=== PATIENT | female | born 1980 | race Caucasian/White ===

== ENCOUNTER 2025-04-08 08:42 | Outpatient (CLI) | payer OTHER, SELFPAY ==
--- OUTSIDE RECORDS SUMMARY | 2025-04-08 08:58 | XMS_ITS | Clinical Summary ---
Author Organization [facility] Virtual Care Address [address] [place] [phone] Phone Care Team Providers Care Skin Installer Name Role Phone Gregg Daniels MD Unavailable Ruiz Betancourt MD Primary Care Provider [phone] Allergies No known active allergies Medications cetirizine (ZyrTEC) 10 mg tabletIndicatio ns:Allergic Rhinitis Take 1 tablet (10 mg total) by mouth every morning Active escitalopram (LEXAPRO) 20 mg tabletIndicatio ns:Depression Take 1 tablet (20 mg total) by mouth every morning 3 Active progesterone (PROMETRIUM) 100 mg capsuleIndicati ons:Premenopaus al symptoms Take 1 capsule (100 mg total) by mouth nightly 3 Active HERBAL DRUGS ORAL Take by mouth Prebiotic powder oral every morning for gut health Red Polyphenol and Fiber mix powder takes by mouth every morning for gut health Active COLOSTRUM, BOVINE ORALIndications :Immune support Take 1 Scoop by mouth every morning powder Active MAGNESIUM GLYCINATE ORALIndications :Insomnia Take 240 mg by mouth nightly Active acetylcysteine (NAC ORAL)Indication s:Sleep Take 1,000 mg by mouth nightly Active progesterone (PROMETRIUM) 100 mg capsule Oral 4 Active Active Problems Problem Noted Date Diagnosed Date Hematuria 06/09/2021 Assessment & Plan (06/09/2021 10:30 AM CDT): Acute on chronic. Likely secondary to old or new left kidney stone. Continue [id number]-[id number] anti-inflammatory. Consider stronger pain medicine if pain is not tolerated. Rule out urinary infection through following up urine culture. Prescribed Flomax . Discussed signs and symptoms also kidney stone emergencies. Follow-up emergency room or urologist depending on symptoms. 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 Skin benign neoplasm 06/14/2014 Infectious warts 06/14/2014 Keratosis, senilis 06/14/2014 Encounters Date Type Department Care Team Description 02/25/2025 12:32 PM CDT - 02/25/2025 11:59 PM CDT Hospital Encounter [facility] [address] [place] [id number] Calculus of kidney; Low back pain, non-specific; Mast cell activation, unspecified; Nausea; Other fatigue; Other urticaria; Pelvic and perineal pain; Snoring Discharge Disposition: Discharge to home or self care 02/07/2025 Orders Only [facility] Health Information Management [address] [place] [address] Scanning, Provider from Last 3 Months Surgical History Surgery Date Site/Laterality Comments EXTRACORPOREAL SHOCK WAVE LITHOTRIPSY 11/24/1995 - 11/23 SECTION 07/26/1998 URETEROSCOPY 06/29/2021 Right URETEROSCOPY 03/24/2023 - 04/23/2023 Medical History Medical History Date Comments Nephrolithiasis Last menstrual period (LMP) date last week 06/13/2021 Depression Family History Medical History Relation Name Comments Macular degeneration Paternal Grandmother Anesthesia problems Neg Hx Relation Name Status Comments Paternal Grandmother Social History Tobacco Use Types Packs/Day Years Used Date Smoking Tobacco: Never Passive Smoke Exposure: Never Smokeless Tobacco: Never AUDIT-C Answer Date Recorded Q1: How often do you have a drink containing alcohol? Never 03/21/2023 Q2: How many drinks containi ng alcohol do you have on a typical day when you are drinking? Patient does not drink Q3: How often do you have si x or more drinks on one occasion? Never 03/21/2023 Personal Safety Answer Date Recorded Have you ever been in or are you currently in a harmful physical or emotional relationship or is someone making you feel afraid or unsafe? 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 Gender Identity Female 05/01/2020 8:33 AM CDT Sexual Orientation Not on file Obstetrics History Last Filed Vital Signs Vital Sign Reading Time Taken Comments Blood Pressure 117/80 09/08/2024 8:11 AM CDT Pulse 60 07/14/2024 9:25 AM CDT Temperature 37 C (98.6 F) 09/08/2024 8:11 AM CDT Respiratory Rate 20 07/14/2024 9:25 AM CDT Oxygen Saturation 98% 07/14/2024 9:25 AM CDT Inhaled Oxygen Concentration - - Weight 69.1 kg (152 lb 4.8 oz) 09/08/2024 8:11 A M CDT Height 175.3 cm (5' 9 ) 09/08/2024 8:11 AM CDT Body Mass Index 22.49 09/08/2024 8:11 AM CDT Plan of Treatment Health Maintenance Due Date Last Done Comments Cervical Cancer Screening 1978 Colon Cancer Screening-Colonoscopy 1978 Depression Screening 1978 Hepatitis C Screening 1978 DTaP/Tdap/Td Vaccine (1 - Tdap) 1989 Hepatitis B Screening 1996 Regular Well Visit/Exam 18-64 1996 Covid-19 Vaccine ( season) 2024 12/29/2020, 12/08/2020 Breast Cancer Screening-Mammogram 05/01/2025 05/01/2024, 07/17/2022, 08/11/2019, Additional history exists Influenza Vaccine (Season Ended) 2025 09/24/2022, 08/24/2021 HPV Vaccines Aged Out No longer eligi ble based on patient's age to complete this topic Pneumococcal vaccine <65 Aged Out No longer eligible based on patient's age to complete this topic Medical Devices Explanted Type Area Steam Shovel Engineer Device Identifier Shelf Expiration Date Model / Serial / Lot [employer] [id number] Set Stent 26cm 5fr Universa 2 Pigtail Curve Ureter Hdrph - [id number] Implanted:Qty: 1 on 06/29/2021 by Evelyn Castelan MD at [facility] Explanted:Qty: 1 on 07/12/2021 Stent Right: Ureter [employer] [id number] 04/19/2024 [id number] / / [id number] [employer] [id number] 6fr 26cm 145cm Radiopaque Positioner Filiform Flexible Tip - [id number] Implanted:Qty: 1 on 03/28/2023 by Gregg Daniels MD at [facility] Explanted:Qty: 1 on 04/09/2023 by Gregg Daniels MD Stent Left: Ureter [employer] [id number] 12/17/2025 [id number] / / [id number] [employer] [id number] 6fr 24cm 145cm Radiopaque Positioner Filiform Flexible Tip - [id number] Implanted:Qty: 1 on 03/28/2023 by Gregg Daniels MD at [facility] Explanted:Qty: 1 on 04/09/2023 by Gregg Daniels MD Stent Right: Ureter [employer] [id number] 12/18/2025 [id number] / / [id number] Procedures Procedure Name Priority Date/Time Associated Diagnosis Comments US TRANSVAGINAL Schedule Routine, Read Routine (OP Routine) 02/25/2025 1:52 PM CDT Calculus of kidney Low back pain, non-specific Mast cell activation, unspecified Nausea Other fatigue Other urticaria Pelvic and perineal pain Snoring SCAN - OTHER ORDERS 02/07/2025 SCREENING MAMMOGRAM BILATERAL W HARMAN Schedule Routine, Read Routine (OP Routine) 05/01/2024 1:02 PM CDT Screening mammogram, encounter for from Last 3 Months or Most Recently Relevant to Health Maintenance Results * US Transvaginal (02/25/2025 1:52 PM CDT) Anatomical Region Laterality Modality Pelvis N/A Ultrasound 02/25/2025 2:24 PM CDT Impressions 02/25/2025 4:47 PM CDT Irregular appearance of the endometrium, which is difficult to differentiate from the myometrium. This may be related to perimenopausal hormonal changes and does not have the typical appearance of adenomyosis. However, differential considerations still include adenomyosis or possibly a low-grade endometrial cancer. Recommend either short-term interval follow-up, sonographic hysterosalpingogram, or endometrial sampling. Dictated by: Pepe Uribe MD The radiology attending physician has personally reviewed this study, and had reviewed and/or edited this written report and agrees with it. Electronically signed by: Kevin Valenzuela M.D. Narrative 02/25/2025 4:47 PM CDT EXAMINATION: TRANSVAGINAL PELVIC SONOGRAM HISTORY: 44-year-old female with pelvic pressure. Most recent menstrual period May 2024. One prior . Otherwise, no history of uterine surgeries or procedures. COMPARISON: CT 12/03/2022 FINDINGS: Uterus: The uterus is anteverted and has a length of 6.9 cm, AP dimension of 2.8 cm, and transverse dimension of 3.4 cm. The endometrium is irregular and difficult to differentiate from the remainder of the uterus. However, it appears to measure approximately 6 cm in thickness. There are no uterine fibroids. Right ovary: The right ovary measures 1.7 cm x 2.5 cm x 1.0 cm. Left ovary: The left ovary measures 1.8 cm x 1.3 cm x 1.4 cm. Other: No abnormal masses or fluid collections are visualized in either adnexal region. Procedure Note Kevin Valenzuela MD - 02/25/2025 EXAMINATION: TRANSVAGINAL PELVIC SONOGRAM HISTORY: 44-year-old female with pelvic pressure. Most recent menstrual period May 2024. One prior . Otherwise, no history of uterine surgeries or procedures. COMPARISON: CT 12/03/2022 FINDINGS: Uterus: The uterus is anteverted and has a length of 6.9 cm, AP dimension of 2.8 cm, and transverse dimension of 3.4 cm. The endometrium is irregular and difficult to differentiate from the remainder of the uterus. However, it appears to measure approximately 6 cm in thickness. There are no uterine fibroids. Right ovary: The right ovary measures 1.7 cm x 2.5 cm x 1.0 cm. Left ovary: The left ovary measures 1.8 cm x 1.3 cm x 1.4 cm. Other: No abnormal masses or fluid collections are visualized in either adnexal region. IMPRESSION: Irregular appearance of the endometrium, which is difficult to differentiate from the myometrium. This may be related to perimenopausal hormonal changes and does not have the typical appearance of adenomyosis. However, differential considerations still include adenomyosis or possibly a low-grade endometrial cancer. Recommend either short-term interval follow-up, sonographic hysterosalpingogram, or endometrial sampling. Dictated by: Pepe Uribe MD The radiology attending physician has personally reviewed this study, and had reviewed and/or edited this written report and agrees with it. Electronically signed by: Kevin Valenzuela M.D. us Notinfile Unknown IMG US PROCEDURES Final Result * SCAN - OTHER ORDERS (02/07/2025) us Provider Scanning Edited Result - Final * Screening Mammogram Bilateral W Harman (05/01/2024 1:02 PM CDT) Anatomical Region Laterality Modality Breast Bilateral Mammography Narrative 05/10/2024 10:09 AM CDT Mammogram Technique: Bilateral Digital Breast Tomosynthesis, Bilateral C-view 2D Screening mammogram. Views obtained: bilateral craniocaudal and bilateral mediolateral oblique. Computer Aided Detection was performed. Mammogram Findings: The present examination has been compared to prior imaging studies performed at [facility] on 06/11/2018 and 08/11/2019, and at [facility] on 07/17/2022. The breasts are extremely dense, which lowers the sensitivity of mammography. There is no suspicious abnormality in either breast. Impression: There is no mammographic evidence of malignancy. Annual screening mammography is recommended. Consider breast MRI for supplemental screening given the patient's extremely dense breast tissue. OVERALL FINAL ASSESSMENT: BI-RADS CATEGORY 1: Negative. Procedure Note Luz Elena Almaraz MD - 05/10/2024 Mammogram Technique: Bilateral Digital Breast Tomosynthesis, Bilateral C-view 2D Screening mammogram. Views obtained: bilateral craniocaudal and bilateral mediolateral oblique. Computer Aided Detection was performed. Mammogram Findings: The present examination has been compared to prior imaging studies performed at [facility] on 06/11/2018 and 08/11/2019, and at [facility] on 07/17/2022. The breasts are extremely dense, which lowers the sensitivity of mammography. There is no suspicious abnormality in either breast. Impression: There is no mammographic evidence of malignancy. Annual screening mammography is recommended. Consider breast MRI for supplemental screening given the patient's extremely dense breasttissue. OVERALL FINAL ASSESSMENT: BI-RADS CATEGORY 1: Negative. us Self Screening Mammogram IMG MAMMO PROCEDURES Fi nal Result from Last 3 Months or Most Recently Relevant to Health Maintenance Insurance [facility] [employer] CHOICE PLUS [facility] [id number] [place] [id number] [employer] Address[address] [place] [address] Care Teams Skin Installer Relationship Specialty Start Date End Date Ruiz Betancourt MD [address] [place] [address] PCP - General Family Medicine 07/14/24 Gregg Daniels MD [address] [facility] [address] [place] [address] Consulting Physician Urology 03/11/23
--- OUTSIDE RECORDS SUMMARY | 2025-04-08 08:58 | XMS_ITS | Clinical Summary ---
Author Organization [facility] Address [address] [place] [address] Care Team Providers Care Engineering Agent Name Role Phone Unavailable Primary Care Provider Unavailabl e Allergies No known active allergies Encounters Date Type Department Care Team Description 03/08/2025 External Device Data [facility] ABSTRACTION Provider, Abstract 02/09/2025 External Device Data [facility]STRACTION Provider, Abstract 02/01/2025 External Device Data [facility]STRACTION Provider, Abstract 02/01/2025 External Device Data [facility]STRACTION Provider, Abstract 01/29/2025 External Device Data [facility] ABSTRACTION Provider, Abstract 01/28/2025 External Device Data [facility]STRACTION Provider, Abstract 01/25/2025 External Device Data [facility]STRACTION Provider, Abstract 01/11/2025 External Device Data [facility] ABSTRACTION Provider, Abstract from Last 3 Months Immunizations Immunization Administration Dates Next Due INFLUENZA VACCINE TRIVALENT SPLIT VIRUS, (6 MOS UP), 0.5ML (PF), IM 08/25/2024 Social History Tobacco Use Types Packs/Day Years Used Date Smoking Tobacco: Never Assessed Comments Unknown Sex and Gender Information Value Date Recorded Sex Assigned at Not on file Legal Sex Female 6:36 PM CDT Gender Identity Not on file Sexual Orientation Not on file Plan of Treatment Health Maintenance Due Date Last Done Comments DTAP/TDAP/TD VACCINES (1 - Tdap) 1997 HEPATITIS B VACCINES (1 of 3 - 19+ 3-dose series) 1997 HPV/Cotest (21-29) 1999 CERVICAL CANCER SCREENING 2008 HPV/Cotest (30-65) 2008 PAP SMEAR 2008 BREAST CANCER SCREENING 2018 COLORECTAL SCREENING 2023 Colorectal Cancer Screening 2023 FIT-DNA Q 3 years 2023 FIT/FOBT Q 1 year 2023 Flex Sig/CT Colonography Q 5 years 2023 INFLUENZA VACCINE Completed 08/25/2024 HPV VACCINES Aged Out No longer eligi ble based on patient's age to complete this topic Insurance RX [employer] Member Subscriber Plan / Payer (Ef fective 2024-Present) Name:Johanna Woods Relation to Subscriber:Self Name:Johanna Woods Subscriber ID:Not on file Payer ID:Not on file Group ID:[id number] Type:RX Commercial Address: [address] [place]
--- OUTSIDE RECORDS SUMMARY | 2025-04-08 08:58 | XMS_ITS | Patient Health Record ---
Author Organization 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 Name Role Phone Ruiz Betancourt MD Primary Care Provider Aileen Ramirez Unavailable [phone] Migration, Provider Unavailable Unavailable Allergies No Known Allergies Reason For Referral No Information Medications Medication SIG (Take, Route, Frequency, Duration) Notes Start Date End Date Status Escitalopram Oxalate 20 MG 1 tablet Once a day for 90 days Active Progesterone Micronized 100 MG Oral 04/12/2024 Active Immunizations Vaccine Route Administration Date Status Comme nts Influenza virus vaccine, quadrivalent (IIV4), split virus, 0.25 mL dosage Unknown 08/24/2021 Administered Influenza, unspecified formulation Unknown 09/24/2022 A dministered Pfizer Biontech Covid-19 Vac cine 2nd dose Unknown 12/08/2020 Administered Pfizer Biontech Covid-19 Vac cine 2nd dose Unknown 12/29/2020 Administered Social History Tobacco Use: Social History Observation Description Date Details (start date - stop date) Never Smoker NA - NA Sex Assigned At : Social History Observation Description Sex Assigned At Female Household Question Answer Notes Marital status: Number of adults in household: 2 Number of children in household: 1 son and step son Tobacco Control (Standard) Question Answer Notes Tobacco use: Nonsmoker AUDIT-C (Standard) Question Answer Notes Did you have a drink containing alcohol in the p ast year? No Points 0 Interpretation Negative Problems Problem Type SNOMED Code ICD Code Onset Dates Problem Status W/U Status Risk Notes Problem Major depressive disorder, recurrent, mild (F33.0) 4 Active confirmed Problem Generalized anxiety disorder (04983031) Generalized anxiety disorder (F41.1) 4 Active confirmed Problem Insomnia disorder 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 disorder (26726778) Insomnia due to other mental disorder (F51.05) 4 Active confirmed Problem Panic disorder (555356150) Panic disorder [episodic paroxysmal anxiety] without agoraphobia (F41.0) 4 Active confirmed Vital Signs Heart Rate 69 /min 01/17/2025 Respiratory Rate 16 /min 01/17/2025 Height-cm 175.26 cm 01/17/2025 Blood pressure diastolic 65 mm Hg 01/17/2025 Weight-kg 70.4 kg 01/17/2025 Height 69.00 in 01/17/2025 Blood pressure systolic 98 mm Hg 01/17/2025 Weight 155.2 lbs 01/17/2025 BMI 22.92 kg/m2 01/17/2025 Encounters Encounter Location Date Provider Diagnosis [facility] [place] [address] [facility] [address] [address] 04/12/2024 Aileen Cotton Insomnia due to other mental disorder F51.05 ; Generalized anxiety disorder F41.1 ; Major depressive disorder, recurrent, mild F33.0 and Panic disorder [episodic paroxysmal anxiety] without agoraphobia F41.0 [facility] [place] [id number] [address] 07/01/2024 Aileen Cotton Major depressive disorder, recurrent, mild F33.0 ; Generalized anxiety disorder F41.1 ; Insomnia due to other mental disorder F51.05 and Panic disorder [episodic paroxysmal anxiety] without agoraphobia F41.0 [facility] [place] [address] [address] 10/07/2024 Aileen Cotton Major depressive disorder, recurrent, mild F33.0 ; Generalized anxiety disorder F41.1 ; Insomnia due to other mental disorder F51.05 and Panic disorder [episodic paroxysmal anxiety] without agoraphobia F41.0 [facility] [place] [address] [address] 01/17/2025 Aileen Cotton Major depressive disorder, recurrent, mild F33.0 ; Generalized anxiety disorder F41.1 ; Insomnia due to other mental disorder F51.05 and Panic disorder [episodic paroxysmal anxiety] without agoraphobia F41.0 [facility] [address] [facility] [address] [place] [address] 04/10/2024 [facility] [address] [facility] [address] [place] [address] 04/11/2024 Provider Migration [facility] [address] [facility] [address] [place] [address] 04/28/2024 [facility] [address] [facility] [address] [place] [address] 04/28/2024 [facility] [address] [facility] [address] [place] [address] 05/06/2024 Aileen Cotton Generalized anxiety disorder F41.1 Assessments Encounter Date Diagnosis (ICD Code) Assessment Notes Treatment Notes Treatment Clinical Notes Section Notes 05/06/2024 Generalized anxiety disorder (ICD-10 - F41.1) 07/01/2024 Major depressive disorder, recurrent, mild (ICD-10 - F33.0) 1. Mild recurrent major depression - Lexapro 20 mg daily continue therapy educated on light box and proper use - not using for SAD depression educated on all medications, benefits, side effects and risk, and educated on depression, anxiety, and , mood d/o and educated on compliance of medications, appointment's, continue therapy discussion with patient about course of treatment and patient instructions. 2. Generalized anxiety disorder -Lexapro educated on rx Medication Management and Follow-Up- Plan:- Schedule follow-up appointments every 1-3 months to monitor the patient's response to the medication regimen.- Reinforce the importance of avoiding recreational drug use due to potential neurotoxicity and interactions with prescribed medications. 3. 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 Panic disorder -Lexapro 07/01/2024 Generalized anxiety disorder (ICD-10 - F41.1) Learning About Generalized Anxiety Disorder material was published, Generalized Anxiety Disorder: Care Instructions material was published, Learning About Anxiety Disorders material was published, Learning About Transcranial Magnetic Stimulation (TMS) material was published 1. Mild recurrent major depression - Lexapro 20 mg daily continue therapy educated on light box and proper use - not using for SAD depression educated on all medications, benefits, side effects and risk, and educated on depression, anxiety, and , mood d/o and educated on compliance of medications, appointment's, continue therapy discussion with patient about course of treatment and patient instructions. 2. Generalized anxiety disorder -Lexapro educated on rx Medication Management and Follow-Up- Plan:- Schedule follow-up appointments every 1-3 months to monitor the patient's response to the medication regimen.- Reinforce the importance of avoiding recreational drug use due to potential neurotoxicity and interactions with prescribed medications. 3. 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 Panic disorder -Lexapro 10/07/2024 Major depressive disorder, recurrent, mild (ICD-10 - F33.0) 1. major depression - Lexapro 20 mg daily continue therapy educated on light box and proper use - not using for SAD depression educated on all medications, benefits, side effects and risk, and educated on depression, anxiety, and , mood d/o and educated on compliance of medications, appointment's, continue therapy discussion with patient about course of treatment and patient instructions. SSRI/SNRI side effects discussed including but not limited to, gastric upset, nausea, vomiting, diarrhea and/or constipation, weight changes, sexual side effects including loss of libido, increased suicidal thoughts/behavio rs in children and young adults, and serotonin syndrome. 2. Generalized anxiety disorder -Lexapro educated on rx Medication Management and Follow-Up- Plan:- Schedule follow-up appointments every 1-3 months to monitor the patient's response to the medication regimen.- Reinforce the importance of avoiding recreational drug use due to potential neurotoxicity and interactions with prescribed medications. 3. 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 Panic disorder -Lexapro 01/17/2025 Major depressive disorder, recurrent, mild (ICD-10 - F33.0) 1. major depression - Lexapro 20 mg daily continue therapy educated on light box and proper use - using for SAD depression- reported sneed snot help her- makes her cry educated on all medications, benefits, side effects and risk, and educated on depression, anxiety, and , mood d/o and educated on compliance of medications, appointment's, continue therapy discussion with patient about course of treatment and patient instructions. SSRI/SNRI side effects discussed including but not limited to, gastric upset, nausea, vomiting, diarrhea and/or constipation, weight changes, sexual side effects including loss of libido, increased suicidal thoughts/behavio rs in children and young adults, and serotonin syndrome. 2. Generalized anxiety disorder -Lexapro educated on rx Medication Management and Follow-Up- Plan:- Schedule follow-up appointments every 1-3 months to monitor the patient's response to the medication regimen.- Reinforce the importance of avoiding recreational drug use due to potential neurotoxicity and interactions with prescribed medications. 3. 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 Panic disorder -Lexapro 04/12/2024 Major depressive disorder, recurrent, mild (ICD-10 - F33.0) 04/12/2024 Generalized anxiety disorder (ICD-10 - F41.1) 04/12/2024 Insomnia due to other mental disorder (ICD-10 - F51.05) 04/12/2024 Panic disorder [episodic paroxysmal anxiety] without agoraphobia (ICD-10 - F41.0) 01/17/2025 Generalized anxiety disorder (ICD-10 - F41.1) Learning About Generalized Anxiety Disorder material was published, Generalized Anxiety Disorder: Care Instructions material was published, Learning About Anxiety Disorders material was published, Learning About Transcranial Magnetic Stimulation (TMS) material was published 1. major depression - Lexapro 20 mg daily continue therapy educated on light box and proper use - using for SAD depression- reported sneed snot help her- makes her cry educated on all medications, benefits, side effects and risk, and educated on depression, anxiety, and , mood d/o and educated on compliance of medications, appointment's, continue therapy discussion with patient about course of treatment and patient instructions. SSRI/SNRI side effects discussed including but not limited to, gastric upset, nausea, vomiting, diarrhea and/or constipation, weight changes, sexual side effects including loss of libido, increased suicidal thoughts/behavio rs in children and young adults, and serotonin syndrome. 2. Generalized anxiety disorder -Lexapro educated on rx Medication Management and Follow-Up- Plan:- Schedule follow-up appointments every 1-3 months to monitor the patient's response to the medication regimen.- Reinforce the importance of avoiding recreational drug use due to potential neurotoxicity and interactions with prescribed medications. 3. 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 Panic disorder -Lexapro 10/07/2024 Generalized anxiety disorder (ICD-10 - F41.1) Learning About Generalized Anxiety Disorder material was published, Generalized Anxiety Disorder: Care Instructions material was published, Learning About Anxiety Disorders material was published, Learning About Transcranial Magnetic Stimulation (TMS) material was published 1. major depression - Lexapro 20 mg daily continue therapy educated on light box and proper use - not using for SAD depression educated on all medications, benefits, side effects and risk, and educated on depression, anxiety, and , mood d/o and educated on compliance of medications, appointment's, continue therapy discussion with patient about course of treatment and patient instructions. SSRI/SNRI side effects discussed including but not limited to, gastric upset, nausea, vomiting, diarrhea and/or constipation, weight changes, sexual side effects including loss of libido, increased suicidal thoughts/behavio rs in children and young adults, and serotonin syndrome. 2. Generalized anxiety disorder -Lexapro educated on rx Medication Management and Follow-Up- Plan:- Schedule follow-up appointments every 1-3 months to monitor the patient's response to the medication regimen.- Reinforce the importance of avoiding recreational drug use due to potential neurotoxicity and interactions with prescribed medications. 3. 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 Panic disorder -Lexapro 07/01/2024 Insomnia due to other mental disorder (ICD-10 - F51.05) 1. Mild recurrent major depression - Lexapro 20 mg daily continue therapy educated on light box and proper use - not using for SAD depression educated on all medications, benefits, side effects and risk, and educated on depression, anxiety, and , mood d/o and educated on compliance of medications, appointment's, continue therapy discussion with patient about course of treatment and patient instructions. 2. Generalized anxiety disorder -Lexapro educated on rx Medication Management and Follow-Up- Plan:- Schedule follow-up appointments every 1-3 months to monitor the patient's response to the medication regimen.- Reinforce the importance of avoiding recreational drug use due to potential neurotoxicity and interactions with prescribed medications. 3. 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 Panic disorder -Lexapro 07/01/2024 Panic disorder [episodic paroxysmal anxiety] without agoraphobia (ICD-10 - F41.0) Panic Attacks: Care Instructions material was published 1. Mild recurrent major depression - Lexapro 20 mg daily continue therapy educated on light box and proper use - not using for SAD depression educated on all medications, benefits, side effects and risk, and educated on depression, anxiety, and , mood d/o and educated on compliance of medications, appointment's, continue therapy discussion with patient about course of treatment and patient instructions. 2. Generalized anxiety disorder -Lexapro educated on rx Medication Management and Follow-Up- Plan:- Schedule follow-up appointments every 1-3 months to monitor the patient's response to the medication regimen.- Reinforce the importance of avoiding recreational drug use due to potential neurotoxicity and interactions with prescribed medications. 3. 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 Panic disorder -Lexapro 10/07/2024 Insomnia due to other mental disorder (ICD-10 - F51.05) 1. major depression - Lexapro 20 mg daily continue therapy educated on light box and proper use - not using for SAD depression educated on all medications, benefits, side effects and risk, and educated on depression, anxiety, and , mood d/o and educated on compliance of medications, appointment's, continue therapy discussion with patient about course of treatment and patient instructions. SSRI/SNRI side effects discussed including but not limited to, gastric upset, nausea, vomiting, diarrhea and/or constipation, weight changes, sexual side effects including loss of libido, increased suicidal thoughts/behavio rs in children and young adults, and serotonin syndrome. 2. Generalized anxiety disorder -Lexapro educated on rx Medication Management and Follow-Up- Plan:- Schedule follow-up appointments every 1-3 months to monitor the patient's response to the medication regimen.- Reinforce the importance of avoiding recreational drug use due to potential neurotoxicity and interactions with prescribed medications. 3. 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 Panic disorder -Lexapro 01/17/2025 Insomnia due to other mental disorder (ICD-10 - F51.05) 1. major depression - Lexapro 20 mg daily continue therapy educated on light box and proper use - using for SAD depression- reported sneed snot help her- makes her cry educated on all medications, benefits, side effects and risk, and educated on depression, anxiety, and , mood d/o and educated on compliance of medications, appointment's, continue therapy discussion with patient about course of treatment and patient instructions. SSRI/SNRI side effects discussed including but not limited to, gastric upset, nausea, vomiting, diarrhea and/or constipation, weight changes, sexual side effects including loss of libido, increased suicidal thoughts/behavio rs in children and young adults, and serotonin syndrome. 2. Generalized anxiety disorder -Lexapro educated on rx Medication Management and Follow-Up- Plan:- Schedule follow-up appointments every 1-3 months to monitor the patient's response to the medication regimen.- Reinforce the importance of avoiding recreational drug use due to potential neurotoxicity and interactions with prescribed medications. 3. 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 Panic disorder -Lexapro 01/17/2025 Panic disorder [episodic paroxysmal anxiety] without agoraphobia (ICD-10 - F41.0) Panic Attacks: Care Instructions material was published 1. major depression - Lexapro 20 mg daily continue therapy educated on light box and proper use - using for SAD depression- reported sneed snot help her- makes her cry educated on all medications, benefits, side effects and risk, and educated on depression, anxiety, and , mood d/o and educated on compliance of medications, appointment's, continue therapy discussion with patient about course of treatment and patient instructions. SSRI/SNRI side effects discussed including but not limited to, gastric upset, nausea, vomiting, diarrhea and/or constipation, weight changes, sexual side effects including loss of libido, increased suicidal thoughts/behavio rs in children and young adults, and serotonin syndrome. 2. Generalized anxiety disorder -Lexapro educated on rx Medication Management and Follow-Up- Plan:- Schedule follow-up appointments every 1-3 months to monitor the patient's response to the medication regimen.- Reinforce the importance of avoiding recreational drug use due to potential neurotoxicity and interactions with prescribed medications. 3. 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 Panic disorder -Lexapro 10/07/2024 Panic disorder [episodic paroxysmal anxiety] without agoraphobia (ICD-10 - F41.0) Panic Attacks: Care Instructions material was published 1. major depression - Lexapro 20 mg daily continue therapy educated on light box and proper use - not using for SAD depression educated on all medications, benefits, side effects and risk, and educated on depression, anxiety, and , mood d/o and educated on compliance of medications, appointment's, continue therapy discussion with patient about course of treatment and patient instructions. SSRI/SNRI side effects discussed including but not limited to, gastric upset, nausea, vomiting, diarrhea and/or constipation, weight changes, sexual side effects including loss of libido, increased suicidal thoughts/behavio rs in children and young adults, and serotonin syndrome. 2. Generalized anxiety disorder -Lexapro educated on rx Medication Management and Follow-Up- Plan:- Schedule follow-up appointments every 1-3 months to monitor the patient's response to the medication regimen.- Reinforce the importance of avoiding recreational drug use due to potential neurotoxicity and interactions with prescribed medications. 3. 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 Panic disorder -Lexapro 07/01/2024 Other Escitalopram Oral Tablet (ESCITALOPRAM - ORAL) material was published 1. Mild recurrent major depression - Lexapro 20 mg daily continue therapy educated on light box and proper use - not using for SAD depression educated on all medications, benefits, side effects and risk, and educated on depression, anxiety, and , mood d/o and educated on compliance of medications, appointment's, continue therapy discussion with patient about course of treatment and patient instructions. 2. Generalized anxiety disorder -Lexapro educated on rx Medication Management and Follow-Up- Plan:- Schedule follow-up appointments every 1-3 months to monitor the patient's response to the medication regimen.- Reinforce the importance of avoiding recreational drug use due to potential neurotoxicity and interactions with prescribed medications. 3. 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 Panic disorder -Lexapro Plan Of Treatment Next Appt Details Provider Name:Aileen Cotton , 04/08/2025 09:45:00 AM, [address], [facility] [address], [place], [address], Insurance Providers Payer Name Payer Address Payer Phone Subscriber Number Group Number Insured Name Patient Relationship to Insured Coverage Start Date Coverage End Date Cigna [address] [facility] [place] [address] [id number] CAMILA SANTIAGO Self - patient is the insured Medical (General) History Medical History History ICD Code Problems: Generalized anxiety disorder Insomnia disorder related to another men shin disorder Mild recurrent major depression Panic disorder Serum iron below reference range Severe recurrent major depression , Surgical History Surgery Date(Month/Year) Lithotripsy ([id number]) 05/11/1996 section ([id number]) 05/21/1998 Lithotripsy ([id number]) 07/14/2021 Other 07/26/1998
--- OUTSIDE RECORDS SUMMARY | 2025-04-08 08:58 | XMS_ITS | Referral Summary ---
Author Organization [facility] Virtual Care Address [address] [place] [address] Phone Care Team Providers Care Clinical Geneticist Name Role Phone Gregg Daniels MD Unavailable Ruiz Betancourt MD Primary Care Provider [phone] Encounters Date Type Department Care Team Description 02/25/2025 12:32 PM CDT - 02/25/2025 11:59 PM CDT Hospital Encounter [facility] [address] [place] [address] Calculus of kidney; Low back pain, non-specific; Mast cell activation, unspecified; Nausea; Other fatigue; Other urticaria; Pelvic and perineal pain; Snoring Discharge Disposition: Discharge to home or self care 02/07/2025 Orders Only [facility] Health Information Management [address] [place] [address] Scanning, Provider from Last 3 Months Allergies No known active allergies Medications cetirizine [...] old or new left kidney stone. Continue sdvi-bmo-vmfvnzj anti-inflammatory. Consider stronger pain medicine if pain is not tolerated. Rule out urinary infection through following up urine culture. Prescribed Flomax . Discussed signs and symptoms also kidney stone emergencies. Follow-up emergency room or urologist depending on symptoms. Nephrolithiasis 06/07/2021 Overview (06/07/2021): Added automatically from request for surgery [id number] Routine eye exam 11/25/2018 Presbyopia of both eyes 11/25/2018 Surgical follow-up care 06/27/2014 Neoplasm of connective and soft tissue 4 Skin benign neoplasm 06/14/2014 Infectious warts 06/14/2014 Keratosis, senilis 06/14/2014 Social History Tobacco Use Types Packs/Day Years Used Date Smoking Tobacco: Never Passive Smoke Exposure: Never Smokeless Tobacco: Never AUDIT-C Answer Date Recorded Q1: How often do you have a drink containing alcohol? Never 03/21/2023 Q2: How many drinks containi ng alcohol do you have on a typical day when you are drinking? 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 Gender Identity Female 05/01/2020 8:33 AM CDT Sexual Orientation Not on file Last Filed Vital Signs Vital Sign Reading [...] 09/08/2024 8:11 AM CDT Plan of Treatment Not on file Medical Devices Explanted Type Area Plumber Helper Device Identifier Shelf Expiration Date Model / Serial / Lot [employer] [id number] Set Stent 26cm 5fr Universa 2 Pigtail Curve Ureter Hdrph - [id number] Implanted:Qty: 1 on 06/29/2021 by Evelyn Castelan MD at [facility] Explanted:Qty: 1 on 07/12/2021 Stent Right: Ureter [employer] [id number] 04/19/2024 [id number] / / [id number] [employer] [id number] 6fr 26cm 145cm Radiopaque Positioner Filiform Flexible Tip - [id number] Implanted:Qty: 1 on 03/28/2023 by Gregg Daniels MD at [facility] Explanted:Qty: 1 on 04/09/2023 by Gregg Daniels MD Stent Left: Ureter [employer] [id number] 12/17/2025 [id number] / / [id number] [employer] [id number] 6fr 24cm 145cm Radiopaque Positioner Filiform Flexible Tip - [id number] Implanted:Qty: 1 on 03/28/2023 by Gregg Daniels MD at [facility] Explanted:Qty: 1 on 04/09/2023 by Gregg Daniels MD Stent Right: Ureter [employer] [id number] 12/18/2025 [id number] / / [id number] Procedures Procedure Name Priority Date/Time Associated Diagnosis Comments US TRANSVAGINAL Schedule Routine, Read Routine (OP Routine) 02/25/2025 1:52 PM CDT Calculus of kidney Low back pain, non-specific Mast cell activation, unspecified Nausea Other fatigue Other urticaria Pelvic and perineal pain Snoring SCAN - OTHER ORDERS 02/07/2025 SCREENING MAMMOGRAM BILATERAL W STEPHEN Schedule Routine, Read Routine (OP Routine) 05/01/2024 [...] - Final * Screening Mammogram Bilateral W Stephen (05/01/2024 1:02 PM CDT) Anatomical Region Laterality Modality Breast Bilateral Mammography Narrative 05/10/2024 10:09 AM CDT Mammogram Technique: Bilateral Digital Breast Tomosynthesis, Bilateral C-view 2D Screening mammogram. Views obtained: bilateral craniocaudal and bilateral mediolateral oblique. Computer Aided Detection was performed. Mammogram Findings: The present examination has been compared to prior imaging studies performed at [facility] on 06/11/2018 and 08/11/2019, and at [facility] on 07/17/2022. The breasts are extremely dense, [...] compared to prior imaging studies performed at [facility] on 06/11/2018 and 08/11/2019, and at [facility] on 07/17/2022. The breasts are extremely dense, [...] Most Recently Relevant to Health Maintenance Insurance [facility] STUDENT RESOURCES CHOICE PLUS [facility] [address] [place] [employer] [facility] [employer] [facility] [employer]EE [employer] Address: [address] RAJWINDER Romero [address] Care Teams Clinical Geneticist Relationship Specialty Start Date End Date Ruiz Betancourt MD [address] [place] [address] PCP - General Family Medicine 07/14/24 Gregg Daniels MD [address] [facility] [address] [place] [address] Consulting Physician Urology 03/11/23
[2025-04-08 09:04] LABS: Hematocrit 37.8 % (37.0-47.0); Hemoglobin 12.4 g/dL (12.0-15.0); Mean Corpuscular HGB Conc 32.8 g/dl (32-36); Mean Corpuscular Hemoglobin 31.1 pg (26-34); Mean Corpuscular Volume 94.7 fl (80-100); Platelet Count Result 213 k/mm3 (150-375); Red Blood Count 3.99 M/mm3 (4.2-5.4); Red Cell Distribution Width 11.7 % (11.5-14.5); White Blood Count 3.9 K/mm3 (4.5-10.0)
== END 2025-04-08 08:43 | disposition home or self-care (01) ==
LOC: ANHSURGERY 08:47
PROVIDERS: PCP Family Medicine; Visit Provider Obstetrics & Gynecology
DX: Z01.812 Encounter for preprocedural laboratory examination (principal); R93.89 Abnormal findings on diagnostic imaging of other specified body structures
CPT/HCPCS: 36415; 85027

== ENCOUNTER 2025-04-14 01:01 | Day surgery (SDC) | payer OTHER, SELFPAY ==
[2025-04-07 10:01] VITALS: BMI 22.1
--- NOTE | 2025-04-07 10:09 | PC.NURSE ---
Report to the Outpatient Waiting Room, entrance under the green pavilion located off [facility], at time _0800_ on date _[id number]_. Planned Procedure Time: _1000_.? Time changes happen often and if your time is changed the preop area will call you the afternoon before. - You and your visitor will be asked to self-screen and do not enter if you have any COVID symptoms. Please call surgeon if you need to reschedule. - A mask is optional within the hospital at this time. Patients may have clear liquids (water, carbonated beverages, clear teas, apple juice) until 3 hours prior to surgery with a maximum of 20 ounces. - No food from midnight until time of surgery and no smoking, or chewing tobacco (or any form of nicotine). No chewing gum, candy or mints. Take only the following medications with a SIP of water on the morning of surgery: ___Escitalopram____ DO NOT STOP ANY OF YOUR OTHER PRESCRIPTION MEDICATIONS PRIOR TO SURGERY EXCEPT THE FOLLOWING Hold all vitamins and supplements for 3 days per anesthesiologist. Medications to discontinue per physician Date to take last adqm___[id number]___ Please no make-up, nail pakistani, hairspray, perfume, deodorant, or body powder the day of surgery.? No jewelry (including any body piercings) or valuables the day of surgery, leave them at home.? Please take a shower or bath the night before, or the morning of, surgery with an antibacterial soap.? Wear comfortable, loose fitting clothing.? - Jewelry must be removed prior to entering the operating room.? Rings and piercings that are not removed may be cut off. - The hospital will not accept responsibility for valuables.? - Please leave all valuables, including medications, at home the day of surgery. If you are going home after surgery, a licensed regional company flatbed truck driver must drive you home.? - NO public transportation without another adult if you receive anesthesia. - We recommend that an adult stay with you for 24 hours following discharge. - We also recommend that you do not drive, make important decision, drink alcoholic beverages, or take any drugs that were not prescribed by your health care provider for at least 24 hours after your discharge time. Follow any additional instructions given to you from your surgeon. Telephone instructions given to __Abbey___and asked if any additional questions and then verbalized understanding. Patient advised to call surgeon office or pre surgery nurse liaison [phone] if any additional questions.
--- OUTSIDE RECORDS SUMMARY | 2025-04-14 01:05 | XMS_ITS | Patient Health Record ---
Author Organization [facility] [employer] Address [address] [place] [address] Care Team Providers Care Salesperson Terrazzo Tiles Name Role Phone Ruiz Betancourt MD Primary Care Provider Aileen Ramirez Unavailable [phone] Allergies No Known Allergies Reason For Referral No Information Medications Medication SIG (Take, Route, Frequency, Duration) Notes Start Date End Date Status Progesterone Micronized 100 MG Oral 04/12/2024 Active Escitalopram Oxalate 20 MG 1 tablet Once a day for 90 days Active Immunizations Vaccine Route Administration Date Status [...] Problem Status W/U Status Risk Notes Problem Mild recurrent major depression (52242161) Major depressive disorder, recurrent, mild (F33.0) 04/12/20 24 Active confirmed Problem Generalized anxiety disorder (92203725) Generalized anxiety disorder (F41.1) 04/12/20 Active confirmed Problem Insomnia disorder 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 disorder (37120934) Insomnia due to other mental disorder (F51.05) 04/12/20 Active confirmed Problem Screening for cardiovascular system disease (529510711) Encounter for screening for cardiovascular disorders (Z13.6) Active confirmed Problem Panic disorder (227918001) Panic disorder [episodic paroxysmal anxiety] without agoraphobia (F41.0) 04/12/20 Active confirmed Vital Signs Heart Rate 67 /min 04/08/2025 Respiratory Rate 16 /min 01/17/2025 Height-cm 175.26 cm 04/08/2025 Blood pressure diastolic 66 mm Hg 04/08/2025 Weight-kg 69.67 kg 04/08/2025 Height 69.00 in 04/08/2025 Blood pressure systolic 99 mm Hg 04/08/2025 Weight 153.6 lbs 04/08/2025 BMI 22.68 kg/m2 04/08/2025 Encounters Encounter Location Date Provider Diagnosis [facility] [place] [id number] [address] 07/01/2024 Aileen Cotton Major depressive disorder, recurrent, mild F33.0 ; Generalized anxiety disorder F41.1 ; Insomnia due to other mental disorder F51.05 and Panic disorder [episodic paroxysmal anxiety] without agoraphobia F41.0 [facility] [employer] [place] [address] [address] 10/07/2024 Aileen Cotton Major depressive disorder, recurrent, mild F33.0 ; Generalized anxiety disorder F41.1 ; Insomnia due to other mental disorder F51.05 and Panic disorder [episodic paroxysmal anxiety] without agoraphobia F41.0 [facility] [employer] [place] [address] [address] 01/17/2025 Aileen Cotton Major depressive disorder, recurrent, mild F33.0 ; Generalized anxiety disorder F41.1 ; Insomnia due to other mental disorder F51.05 and Panic disorder [episodic paroxysmal anxiety] without agoraphobia F41.0 [facility] [employer] [place] [address] [address] 04/08/2025 Aileen Cotton Negative depression screening Z13.31 ; Major depressive disorder, recurrent, mild F33.0 ; Generalized anxiety disorder F41.1 ; Insomnia due to other mental disorder F51.05 ; Panic disorder [episodic paroxysmal anxiety] without agoraphobia F41.0 and Encounter for screening for cardiovascular disorders Z13.6 [facility] [employer] [address] [place] [address] 04/28/2024 Aileen Therolivia [facility] [employer] [facility] [address] [place] [address] 04/28/2024 Aileen Therolivia [facility] [employer] [facility] [address] [place] [address] 05/06/2024 Aileen Lula Generalized anxiety disorder F41.1 Assessments Encounter Date Diagnosis (ICD Code) Assessment Notes Treatment Notes Treatment Clinical Notes Section Notes 05/06/2024 Generalized anxiety disorder (ICD-10 - F41.1) 10/07/2024 Major depressive disorder, recurrent, mild (ICD-10 [...] disorder - stable 4. Panic disorder -Lexapro 04/08/2025 Major depressive disorder, recurrent, mild (ICD-10 - [...] disorder - stable 4. Panic disorder -Lexapro 04/08/2025 Negative depression screening (ICD-10 - Z13.31) 1. major depression - Lexapro 20 mg [...] - stable 4. Panic disorder -Lexapro 07/01/2024 Major depressive disorder, recurrent, mild (ICD-10 [...] - stable 4. Panic disorder -Lexapro 01/17/2025 Generalized anxiety disorder (ICD-10 - F41.1) [...] disorder - stable 4. Panic disorder -Lexapro 04/08/2025 Generalized anxiety disorder (ICD-10 - F41.1) Learning [...] disorder - stable 4. Panic disorder -Lexapro 04/08/2025 Insomnia due to other mental disorder (ICD-10 [...] disorder - stable 4. Panic disorder -Lexapro 04/08/2025 Panic disorder [episodic paroxysmal anxiety] without agoraphobia [...] disorder - stable 4. Panic disorder -Lexapro 04/08/2025 Encounter for screening for cardiovascular disorders (ICD-10 - Z13.6) 1. major depression - Lexapro 20 mg [...] Next Appt Details Provider Name:Aileen Cotton , 07/08/2025 09:45:00 AM, [address] [facility] [address] [address] [facility] [address], [place], [address], Insurance Providers Payer Name Payer Address Payer Phone Subscriber Number Group Number Insured Name Patient Relationship to Insured Coverage Start Date Coverage End Date Cigna [address] [place] [address] [id number] CAMILA SANTIAGO Self - patient is the insured Medical (General) History Medical History History ICD Code Problems: Generalized anxiety disorder Insomnia disorder related to another men shin disorder Mild recurrent major depression Panic disorder Serum iron below reference range Severe recurrent major depression , Surgical History Surgery Date(Month/Year) Lithotripsy (135996515) 05/11/1996 section (46774904) 05/21/1998 Lithotripsy (417959054) 07/14/2021 Other 07/26/1998
--- OUTSIDE RECORDS SUMMARY | 2025-04-14 01:05 | XMS_ITS | Clinical Summary ---
Author Organization [facility] Virtual Care Address [address] [place] [address] Phone Care Team Providers Care Coding Quality Analyst Name Role Phone Gregg Daniels MD Unavailable Ruiz Betancourt MD Primary Care Provider [phone] Allergies No known active allergies Medications cetirizine [...] old or new left kidney stone. Continue vweu-dlt-vkbtgah anti-inflammatory. Consider stronger pain medicine if pain is not tolerated. Rule out urinary infection through following up urine culture. Prescribed Flomax . Discussed signs and symptoms also kidney stone emergencies. Follow-up emergency room or urologist depending on symptoms. Nephrolithiasis 06/07/2021 Overview (06/07/2021): Added automatically from request for surgery [id number] Routine eye exam 11/25/2018 Presbyopia of both eyes 11/25/2018 Surgical follow-up care 06/27/2014 Neoplasm of connective and soft tissue 4 Skin benign neoplasm 06/14/2014 Infectious warts 06/14/2014 Keratosis, senilis 06/14/2014 Encounters Date Type Department Care Team Description 02/25/2025 12:32 PM CDT - 02/25/2025 11:59 PM CDT Hospital Encounter [facility] [address] [place] [address] Calculus of kidney; Low back pain, non-specific; Mast cell activation, unspecified; Nausea; Other fatigue; Other urticaria; Pelvic and perineal pain; Snoring Discharge Disposition: Discharge to home or self care 02/07/2025 Orders Only [facility] Health Information Management 1 [place] [address] Scanning, Provider from Last 3 Months Surgical [...] on file 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 Gender Identity Female 05/01/2020 8:33 AM CDT [...] this topic Medical Devices Explanted Type Area Banana Expert Device Identifier Shelf Expiration Date Model / Serial / Lot [employer] [id number] Set Stent 26cm 5fr Universa 2 Pigtail Curve Ureter Hdrph - [id number] Implanted:Qty: 1 on 06/29/2021 by Evelyn Castelan MD at [facility] Explanted:Qty: 1 on 07/12/2021 Stent Right: Ureter [employer] [id number] 04/19/2024 [id number] / / [id number] [employer] [id number] 6fr 26cm 145cm Radiopaque Positioner Filiform Flexible Tip - [id number] Implanted:Qty: 1 on 03/28/2023 by Gregg Daniels MD at [facility] Explanted:Qty: 1 on 04/09/2023 by Gregg Daniels MD Stent Left: Ureter [employer] [id number] 12/17/2025 [id number] / / [id number] [employer] [id number] 6fr 24cm 145cm Radiopaque Positioner Filiform Flexible Tip - [id number] Implanted:Qty: 1 on 03/28/2023 by Gregg Daniels MD at [facility] Explanted:Qty: 1 on 04/09/2023 by Gregg Daniels MD Stent Right: Ureter [employer] [id number] 12/18/2025 [id number] / / [id number] Procedures Procedure Name Priority Date/Time Associated Diagnosis [...] compared to prior imaging studies performed at [facility] on 06/11/2018 and 08/11/2019, and at [facility] on 07/17/2022. The breasts are [...] compared to prior imaging studies performed at [facility] on 06/11/2018 and 08/11/2019, and at [facility] on 07/17/2022. The breasts are [...] Most Recently Relevant to Health Maintenance Insurance [facility] STUDENT RESOURCES CHOICE [facility]US [facility] HMO/PPO Address: [facility] [id number] [place] [address] [facility] [id number] [place] [id number] [employer] [facility] EMPL[employer]EE HEALTH PLANS Address: [address] [place] [address] Care Teams Coding Quality Analyst Relationship Specialty Start Date End Date Ruiz Betancourt MD [facility] [place] [address] PCP - General Family Medicine 07/14/24 Gregg Daniels MD [address] [facility] [address] [place] [address] Consulting Physician Urology 03/11/23
--- OUTSIDE RECORDS SUMMARY | 2025-04-14 01:05 | XMS_ITS | Clinical Summary ---
Author Organization [facility] Address [address] [place] [address] Care Team Providers Care Dental Professional Name Role Phone Unavailable Primary Care Provider Unavailabl e Allergies No known active allergies Encounters Date Type Department Care Team Description 04/12/2025 External Device Data ST[facility] ABSTRACTION Provider, Abstract 03/08/2025 External Device Data STL ABSTRACTION Provider, [...]
--- OUTSIDE RECORDS SUMMARY | 2025-04-14 01:05 | XMS_ITS | Referral Summary ---
Author Organization [facility] Virtual Care Address [address] [place] [address] Phone Care Team Providers Care Gun Striper Name Role Phone Gregg Daniels MD Unavailable Ruiz Betancourt MD Primary Care Provider [phone] Encounters Date Type Department Care Team Description 02/25/2025 12:32 PM CDT - 02/25/2025 11:59 PM CDT Hospital Encounter [facility]) [address] [place] [address] Calculus of kidney; Low back pain, non-specific; Mast cell activation, unspecified; Nausea; Other fatigue; Other urticaria; Pelvic and perineal pain; Snoring Discharge Disposition: Discharge to home or self care 02/07/2025 Orders Only [facility] Health Information Management 1 [place] [address] Scanning, Provider from Last 3 Months Allergies [...] old or new left kidney stone. Continue uqtj-pfv-yizjbwr anti-inflammatory. Consider stronger pain medicine if pain is not tolerated. Rule out urinary infection through following up urine culture. Prescribed Flomax . Discussed signs and symptoms also kidney stone emergencies. Follow-up emergency room or urologist depending on symptoms. 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 Gender Identity Female 05/01/2020 8:33 AM CDT [...] on file Medical Devices Explanted Type Area Thread Pulling Machine Attendant Device Identifier Shelf Expiration Date Model / Serial / Lot [employer] [id number] Set Stent 26cm 5fr Universa 2 Pigtail Curve Ureter Hdrph - [id number] Implanted:Qty: 1 on 06/29/2021 by Evelyn Castelan MD at [facility] Explanted:Qty: 1 on 07/12/2021 Stent Right: Ureter [employer] [id number] 04/19/2024 [id number] / / [id number] [employer] [id number] 6fr 26cm 145cm Radiopaque Positioner Filiform Flexible Tip - [id number] Implanted:Qty: 1 on 03/28/2023 by Gregg Daniels MD at [facility] Explanted:Qty: 1 on 04/09/2023 by Gregg Daniels MD Stent Left: Ureter [employer] [id number] 12/17/2025 [id number] / / [id number] [employer] [id number] 6fr 24cm 145cm Radiopaque Positioner Filiform Flexible Tip - [id number] Implanted:Qty: 1 on 03/28/2023 by Gregg Daniels MD at [facility] Explanted:Qty: 1 on 04/09/2023 by Gregg Daniels MD Stent Right: Ureter [employer] [id number] 12/18/2025 [id number] / / [id number] Procedures Procedure Name Priority Date/Time Associated Diagnosis [...] and agrees with it. Electronically signed by: Kevni Valenzuela M.D. Narrative 02/25/2025 4:47 PM CDT [...] compared to prior imaging studies performed at [facility] on 06/11/2018 and 08/11/2019, and at [facility] on 07/17/2022. The breasts are extremely [...] compared to prior imaging studies performed at [facility] on 06/11/2018 and 08/11/2019, and at [facility] on 07/17/2022. The breasts are extremely [...] Most Recently Relevant to Health Maintenance Insurance [facility] STUDENT RESOURCES CHOICE [facility] [id number] [place] [employer] [facility] [employer] Address: [address] [place] [address] Care Teams Gun Striper Relationship Specialty Start Date End Date Ruiz Betancourt MD [address] [place] [address] PCP - General Family Medicine 07/14/24 Gregg Daniels MD [address] [facility] [address] [place] [address] Consulting Physician Urology 03/11/23
--- OUTSIDE RECORDS SUMMARY | 2025-04-14 01:05 | XMS_ITS | Encounter Summary ---
Author Organization [facility] Address [address] [place] [address] Care Team Providers Care Microsystems Engineer Name Role Phone Unavailable Primary Care Provider Unavailabl e Encounter Details Date Type Department Care Team (Late st Contact Info) Description 04/12/2025 External Device Data ST[facility] ABSTRACTION Provider, Abstract NO ADDRESS ON FILE Social History Tobacco Use Types Packs/Day Years Used Date Smoking Tobacco: Never Assessed Comments Unknown Sex and Gender Information Value Date Recorded Sex Assigned at Not on file Legal Sex Female 6:36 PM CDT Gender Identity Not on file Sexual Orientation Not on file documented as of this encounter Plan of Treatment Not on file documented as of this encounter Visit Diagnoses Not on filedocumented in this encounter
--- NOTE | 2025-04-14 06:56 | WPDHPUPDATE1 ---
History and Physical Update Update Date/Time: 04/14/25 06:56 History and Physical has been reviewed, including an updated exam of the patient. There are NO changes in the patient's condition. Risks, benefits, and alternatives have been discussed and questions answered. Patient agrees to proceed with procedure.
[2025-04-14 08:25] VITALS: BP 125/83; PULSE 65; RESP 16; TEMP 36.7; O2SAT 100
[2025-04-14] MEDS: ACETAMINOPHEN 500 MG TABLET 1000 MG PO (08:25)
[2025-04-14] MEDS: LACTATED RINGERS 1,000 ML 30 ML IV CONT (08:25)
--- NOTE | 2025-04-14 09:16 | WPDANESEPPF ---
Anes - Initial Pre Proc Eval Procedure: Operation Date: 04/14/25 10:00 Proposed Procedures p Hysteroscopy Dilation and Curettage - Wan Iglesias MD Date/Time: 04/14/25 09:16 Surgeon: Wan Iglesias MD Pre Op Diagnosis: Endometrial Hyperplasia Patient Data Age: 44 Gender: F Height: 1.75 m Weight: 68.2 kg Allergies Allergy/AdvReac Type Severity Reaction Status Date / Time No Known Allergies Allergy Verified 04/07/25 09:55 Home Medications ?Medication ?Instructions ?Recorded ?Confirmed ?Type escitalopram oxalate 20 mg tablet 20 mg PO DAILY 07/16/22 04/07/25 History progesterone micronized 100 mg 100 mg PO QHS #90 caps 01/17/25 04/07/25 Rx capsule Magnesium malate 250 mg PO HS 04/07/25 04/07/25 History NAC 900 mg PO HS 04/07/25 04/07/25 History cetirizine 10 mg tablet (24Hour 10 mg PO DAILY 04/07/25 04/07/25 History Allergy) omega 6-hst-tlj-fish oil 1,200 mg 1 cap PO BID 04/07/25 04/07/25 History (144 mg-216 mg) capsule (Fish Oil) vitamin B complex (Complex B-100 1 tablet PO DAILY 04/07/25 04/07/25 History tablet,extended release) vitamin D3 125 mcg (5,000 1 cap PO DAILY 04/07/25 04/07/25 History unit)-vitamin K2 180 mcg capsule (K2-D3 Max) Patient hx anesthesia problems: none Family hx anesthesia problems: none Results Review: All pre-operative results and documents have been reviewed as part of the pre-operative evaluation. [facility] Past Medical History Medical History Positive FREDDIE (antinuclear antibody) Screening mammogram, encounter for Kidney stone Depression Anxiety HPV in female Abnormal Pap smear of cervix 09/07/07 lgsil (+) hpv 01/19/08 lgsil (+); 04/25/08 lgsil (+) hpv; 07/27/08 lgsil (+) hpv; 02/25/12 ascus neg hpv Surgical History Surgical History H/O lithotripsy (~03/2023) History of colposcopy with cervical biopsy 10/01/07 squamous atypia 08/15/08 LGSIL RAPHAEL 1 04/02/12 benign endocervical tissues History of (07/26/98) primary--breech History of lithotripsy (~1994) 06/2021 Family History Family History Grandparent Heart disease paternal grandfather paternal grandmother Mother Hypertension Father Atrial fibrillation Social History Social History Smoking status: Never smoker Second hand tobacco smoke exposure: No Alcohol intake: never Substance use: never Substance use type: does not use Do You Feel Safe in your Home?: Yes Lack of Transportation: No Lack of Food: Never True Current Housing: I Have Housing Concerned About Future Housing: No Difficulty Paying Gas/Electric Bills: No Difficulty Paying for Meds: No Currently Unemployed: No Education: Master's Degree or Higher Difficulty w/ Childcare or Family Care: No Living arrangements: with family Additional living arrangements comments: Occupation/Education: occupation 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 [employer] Gender identity (if verbalized by the patient): Female Sexual Orientation (if Verbalized by the Patient): Straight or Heterosexual Spiritual care concerns: No Anes - Eval Final PreProcedure Day of Procedure 04/14/25 09:16 Patient weight: normal Heart: regular rate and rhythm Lungs: clear to auscultation Airway: Mallampati scale class II Neurological: alert and oriented Last oral intake: >/= 8 hours ASA classification: II Emergent: no Anesthetic plan: proceed Anesthesia type and monitoring: general GIVS and standard monitoring Results Review: All pre-operative results and documents have been reviewed as part of the pre-operative evaluation. Informed Consent: The patient's anesthetic plan and its attendant risks and benefits were discussed with the patient/family/POA. Questions were solicited and answers provided to the satisfaction of the patient/family/POA.
[2025-04-14 09:30] LABS: BEDSIDEPREGUCG Negative (Negative)
[2025-04-14 09:41] VITALS: BP 108/66; PULSE 61; RESP 12; O2SAT 100
--- NOTE | 2025-04-14 09:45 | W.PM.PROC2 ---
Procedure Note - Detailed Date of Procedure 04/14/25 Pre-op Diagnosis Endometrial Hyperplasia Post-op Diagnosis Same Procedure Performed Hysteroscopy uterine curettings Surgeon Wan Iglesias MD Anesthesia MAC Findings Stenotic cervix atrophic endometrial cavity Description of Procedure Patient was prepped and draped this procedure. Stenotic cervix was encountered and dilated without difficulty. Hysteroscope was placed endometrial cavity with no evidence of abnormality. No polyps fibroids or thickened tissue was noted. Cavity did appear atrophic without hypervascularity. Curette was used to obtain endometrial tissue though this sampling was very scant due to thin cavity. Estimated Blood Loss 10 Drains No Packing No Pathology Yes (Scant endometrium) Complications No immediate complications Condition Stable Disposition PACU [facility] Billing Surgery - Charge Forward: Surgery Billing
[2025-04-14 10:10] VITALS: BP 105/65; PULSE 61
[2025-04-14 10:40] VITALS: BP 117/72; PULSE 57
== END 2025-04-14 10:48 | disposition home or self-care (01) ==
PROVIDERS: PCP Family Medicine; Visit Provider Obstetrics & Gynecology
PROC: 0U5B8ZZ Destruction of Endometrium, Via Natural or Artificial Opening Endoscopic (ICD-10-PCS; CPT 58563; principal; 2025-04-14 10:00)
DX: R93.89 Abnormal findings on diagnostic imaging of other specified body structures (principal); N88.2 Stricture and stenosis of cervix uteri; F32.A Depression, unspecified; F41.9 Anxiety disorder, unspecified; Z98.890 Other specified postprocedural states; Z87.442 Personal history of urinary calculi; Z87.410 Personal history of cervical dysplasia; Z82.49 Family history of ischemic heart disease and other diseases of the circulatory system
CPT/HCPCS: 58558; 88305; A9270; J1171; J2250; J2704; J7120